=== PATIENT | female | born 1945 | race Hispanic/Latino ===

== ENCOUNTER 2019-09-25 18:00 | Inpatient (IN) | payer OTHER ==
[2019-09-25] MEDS ORDERED: NA CHLORIDE 0.9% 1,000 ML ONE ×3 (18:20→23:38)
[2019-09-25] MEDS ORDERED: GLUCAGON 1 MG/VIAL ONE (18:38)
[2019-09-25] MEDS ORDERED: ONDANSETRON 4 MG/2 ML VIAL ONE (18:39)
[2019-09-25 18:44] LABS: Absolute Lymphocytes (CBC) 1.9 K/uL (0.7-4.9); Basophils % 0.5 % (0-1.3); Hematocrit 28.7 % (36.0-45.0); Lymphocytes % 13.9 % (15.3-44.8); MPV 8.8 fL (7.6-11.3)
[2019-09-25 19:12] LABS: ALT/SGPT 14 U/L (12-78); AST/SGOT 22 U/L (15-37); Albumin 2.9 g/dL (3.4-5.0); Alkaline Phosphatase 66 U/L (45-117); BUN Blood Urea Nitrogen 56 mg/dL (7-18); Bicarbonate 6 mmol/L (21-32); Bilirubin Total 0.3 mg/dL (0.2-1.0); Glucose Level 125 mg/dL (74-106); Protein, Total 6.1 g/dL (6.4-8.2); Sodium Level 136 mmol/L (136-145); Troponin (Emerg Dept Use Only) < 0.02 ng/mL (0.0-0.045)
[2019-09-25 19:15] LABS: Potassium 6.9 mmol/L (3.5-5.1)
--- NOTE | 2019-09-25 19:22 | RAD REPORT ---
EXAM DESCRIPTION: CT - Head C Spine Mpr Wo Con - 09/25/2019 6:58 pm CLINICAL HISTORY: Head and neck injury status post fall. Head and neck pain COMPARISON: None. TECHNIQUE: Computed axial tomography of the head and cervical spine was obtained. Sagittal and coronal reconstruction was performed. All CT scans are performed using dose optimization technique as appropriate and may include automated exposure control or mA/KV adjustment according to patient size. FINDINGS: An intracranial bleed is not seen. The ventricles are normal in caliber. An extra-axial fl uid collection is not noted.Fluid within the visualized sinuses and mastoids is not seen A cervical fracture is not visualized. No dislocation is noted. IMPRESSION: No acute intracranial abnormality is seen. A cervical fracture is not visualized. If the patient continues to have symptoms to suggest intracra nial /spinal cord pathology then MRI would be recommended
[2019-09-25] MEDS ORDERED: ALBUTEROL 2.5 MG/3 ML NEB SOL ONE (19:24)
[2019-09-25] MEDS ORDERED: CEFTRIAXONE/SWI 1gm 1 GM/10 ML SYR ONE (19:25)
[2019-09-25] MEDS ORDERED: D50W 25 GM/50 ML SYRINGE/VIAL IV ONE (19:25)
[2019-09-25] MEDS ORDERED: Magnesium Sulfate 2gm IVPB 2 G/50 ML BAG IV ONE (19:25)
[2019-09-25] MEDS ORDERED: INSULIN -REGULAR HUMAN 50 UNIT/0.5 ML ML ONE (19:25)
--- NOTE | 2019-09-25 19:31 | RAD REPORT ---
EXAM DESCRIPTION: Rg Single View09/25/2019 7:01 pm CLINICAL HISTORY: Hypotension COMPARISON: none FINDINGS: The lungs appear clear of acute infiltrate. The heart is mildly enlarged IMPRESSION: No acute abnormalities displayed
[2019-09-25] MEDS ORDERED: NOREPINEPHRINE 4mg/D5W 250mL 4 MG/250 ML BAG IV ONE (19:42)
--- NOTE | 2019-09-25 20:14 | RAD REPORT ---
EXAM DESCRIPTION: CT - Abdomen Pelvis W Contrast - 09/25/2019 7:02 pm CLINICAL HISTORY: Abdominal pain COMPARISON: none. TECHNIQUE: Computed axial tomography of the abdomen pelvis was obtained. 100 cc Isovue-300 was admin istered intravenously. Oral contrast was not requested which limits evaluation of bowel. All CT scans are performed using dose optimization technique as appropriate and may include automated exposure control or mA/KV adjustment according to patient size. FINDINGS: Periportal hepatic edema. Gallbladder wall enhances. The spleen, pancreas and adrenals are unremarkable 2.8 centimeter left renal cyst. Small right renal cyst There is diminished opacification of the kidneys. Low-density is present within the right and left re nal veins. There is no evidence of diverticulitis. IMPRESSION: Periportal hepatic edema is a nonspecific finding but can be associated with hepatic inf lammation Enhancement of the gallbladder wall may also be related to hepatic inflammation or gallbladder diseas e. Ultrasound is recommended Diminished opacification of the kidneys may be related to cardiovascular disease. Low-density within the right and left renal veins probably unopacified blood. Thrombus has a similar appearance. Renal v ein ultrasound is recommended.
[2019-09-25 20:58] LABS: Magnesium 2.4 mg/dL (1.8-2.4)
[2019-09-25] MEDS ORDERED: SODIUM BICARB 50 MEQ/50ML VIAL ONE ×3 (21:01→21:40)
[2019-09-25] MEDS ORDERED: D5W 1,000 ML IV ONE (21:14)
[2019-09-25 21:21] LABS: Arterial Blood Carboxyhemoglob 0.6 % (0-1.5); Blood Gas Oxyhemoglobin 96.1 % (94-97); Blood O2 Saturation 96.6 % (92-98.5)
[2019-09-25] MEDS ORDERED: Caclcium Chloride 10% INJ SYR IV ONE (21:33)
[2019-09-25 21:35] LABS: Potassium 5.7 mmol/L (3.5-5.1)
[2019-09-25] MEDS ORDERED: LIDOCAINE 1% MPF 30 ML VIAL ONE (21:51)
[2019-09-25] MEDS ORDERED: D5W 1,000 ML with NA BICARB 8.4% 150 MEQ IV SCH ×2 (22:00)
[2019-09-25] MEDS ORDERED: NA CHLORIDE 0.9% 1,000 ML IV SCH (22:00)
[2019-09-25] MEDS ORDERED: KETAMINE HCL 500 MG/5 ML VIAL ONE (22:09)
--- NOTE | 2019-09-25 22:27 | ER ---
Nurse's Notes [facility] Name: Carolina Andrade Age: 74 yrs Sex: Female : 1945 Arrival Date: 09/25/2019 Time: 18:07 Bed 3 Private MD: Diagnosis: Acute renal failure;Hyperkalemia;Lactic acidosis;Altered mental status;Hypotension Presentation: 09/25 18:08 Presenting complaint: EMS states: pt daughter states that the patient was confused, sg altered mental status, with slurred speech. EMS states that the glucometer reading was "LO", administered D50 amp and sugar increased, upon taking VS the pt was hypotensive with BP readings of 70'S/40's. Transition of care: patient was not received from another setting of care. Onset of symptoms was September 25, 2019. Risk Assessment: Do you want to hurt yourself or someone else? Patient reports no desire to harm self or others. Initial Sepsis Screen: Does the patient meet any 2 criteria? Systolic BP < 90 mmHg. Mean Arterial Pressure (MAP) < 65. Yes Does the patient have a suspected source of infection? No. Patient's initial sepsis screen is negative. Care prior to arrival: Medication(s) given: D50. Care prior to arrival: IV initiated. 18 GA, in the right wrist, Glucose check: 130. 18:08 Method Of Arrival: EMS: [facility] sg 18:08 Acuity: EDWARD 2 sg Historical: - Allergies: 18:15 No Known Allergies; sg - Home Meds: 18:17 carvedilol oral oral [Active]; amlodipine oral [Active]; Metformin Oral [Active]; sg - PMHx: 18:15 Hypertension; Diabetes - NIDDM; sg - Immunization history:: Adult Immunizations up to date. - Coronavirus screen:: The patient has NOT traveled to [place] in the past 14 days. The patient has NOT had contact with known/suspected case of Coronavirus?. - Social history:: Smoking status: Patient denies any tobacco usage or history of. - Ebola Screening: : Patient negative for fever greater than or equal to 101.5 degrees Fahrenheit, and additional compatible Ebola Virus Disease symptoms Patient denies exposure to infectious person Patient denies travel to an Ebola-affected area in the 21 days before illness onset No symptoms or risks identified at this time. Screenin:00 Abuse screen: Denies threats or abuse. Nutritional screening: No deficits noted. ea Tuberculosis screening: No symptoms or risk factors identified. Fall Risk IV access (20 points). Assessment: 19:18 General: Appears uncomfortable, Behavior is restless. Pain: Unable to use pain scale. ea FLACC scale score is 4 out of 10. Neuro: Level of Consciousness is confused, Oriented to none. Cardiovascular: Heart tones S1 S2 present. Respiratory: Airway is patent Respiratory effort is even, unlabored, Respiratory pattern is regular, symmetrical. Derm: Skin is dry, Skin is pale, Skin temperature is cool. 19:45 Reassessment: Pt attempting to pull lines, verbal order for soft restraints obtained. ea Pt placed in soft restraints, pt tolerating well. 20:15 Reassessment: Provider at bedside attempting to place central line, pt is confused, ea oriented to zero, respirations even and unlabored, chest expansions even and symmetrical. 22:21 Reassessment: Dr Brown is here and speaking with family. 23:10 Reassessment: Pt remains confused, oriented to zero, respirations even and unlabored, ea chest expansions even and symmetrical. Pt admitted to ICU, taken via stretcher per nurse and two ED techs. Elias to BSD, IV's and central line patent with IV fluids. Pt tolerating well. Vital Signs: 18:08 BP 69 / 40; Pulse 62; Resp 18; Temp 97.7; Pulse Ox 100% on R/A; sg 18:15 BP 79 / 46; Pulse 66; sg 18:30 BP 79 / 43; Pulse 82; Resp 15; Pulse Ox 100% ; sv 19:20 BP 80 / 49; Pulse 54; Resp 16; Pulse Ox 100% ; ea 20:35 BP 82 / 37; Pulse 64; Resp 18; Temp 90(R); Pulse Ox 100% ; ea 21:40 BP 102 / 58; Pulse 70; Resp 16; Pulse Ox 100% ; ea 22:45 BP 100 / 74; Pulse 73; Resp 20; Pulse Ox 99% ; ea 20:35 Pt placed on tierney hugger ea ED Course: 18:07 Patient arrived in ED. sg 18:08 Garrison Antoine MD is Attending Physician. ps1 18:08 Arm band placed on. sg 18:14 Triage completed. sg 18:16 Raul Alvarez, RN is Primary Nurse. sg 18:20 Initial lab(s) drawn, by ED staff, sent to lab. Maintain EMS IV. Dressing intact. Site sg clean \\T\\ dry. Gauge \\T\\ site: 18 G RFA. IV is patent, is intact, with fluids infusing freely, with good blood return. 18:36 Radiology exam delayed due to IV insertion attempt and/or patient not having bh appropriate IV at this time. 18:40 Initial lab(s) drawn, sent to lab. First set of blood cultures drawn by me. mh5 18:45 Inserted saline lock: 22 gauge in left forearm, using aseptic technique. Blood mh5 collected. 18:46 Patient has correct armband on for positive identification. Placed in gown. Bed in low mh5 position. Call light in reach. Side rails up X2. Adult w/ patient. Warm blanket given. quality assurance monitor body on. Pulse ox on. NIBP on. 18:47 Lactate Sent. mh5 18:48 Glucose Sent. sv 18:48 CXR XRAY Sent. sv 18:48 Troponin (emerg Dept Use Only) Sent. sv 18:48 CMP Sent. sv 18:48 CBC with Diff Sent. sv 19:02 Report given to Karol NJ and Reed NJ. sv 19:15 Notified ED physician of a critical lab result(s). potassium of 6.9, CO2 of 6, jd3 Creatinine of 7.69. 19:41 Notified ED physician of a critical lab result(s). lactate 13.4. fc 22:23 Vivi Mcintosh MD is Hospitalizing Provider. ps1 22:30 Assisted provider with central line placement. Set up central line tray. Triple lumen ea line placed in right femoral. Line placed by Garrison Antoine MD Placement verified by blood return, Dressed with Tegaderm, Patient tolerated well. 22:38 Assisted provider with Stan catheter line placement. Set up line tray. Double lumen ea placed in left femoral. Line placed by Garrison Antoine MD. Placement verified by blood return. Dressed with Tegaderm, pt tolerated well. 22:45 Elias cath inserted, using sterile technique, 16 Fr., by nh, balloon inflated, to ea gravity drainage, urine specimen collected. 23:40 Patient admitted, IV remains in place. ea Restraints: 19:45 Non-Violent Restraint: Order obtained. Initiated on September 25, 2019 at 19:45 ea Actions/Behavior observed: Confused/disoriented, Less restrictive alternatives attempted: family at bedside, Alternative interventions: Ineffective. Clinical justification for use: line protection, Mental status: confused, Cognition: unable to follow commands, Circulation: Within defined parameters (based on Cardiovascular assessment) Skin integrity: Within defined parameters (based on Integumentary assessment) Restraint status: Soft wrist restraint (Right) Started. Soft wrist restraint (Left) Started. 20:45 Non-Violent Restraint: Actions/Behavior observed: Confused/disoriented, Less ea restrictive alternatives attempted: nurse at bedside, one on one patient care . Alternative interventions: Ineffective. Clinical justification for use: line protection, Mental status: confused, Cognition: unable to follow commands, Circulation: Within defined parameters (based on Cardiovascular assessment) Skin integrity: Within defined parameters (based on Integumentary assessment). 21:45 Non-Violent Restraint: Actions/Behavior observed: Confused/disoriented, Less ea restrictive alternatives attempted: one on one nurse care. Alternative interventions: Ineffective. Clinical justification for use: line protection, Mental status: confused, Cognition: unable to follow commands, Circulation: Within defined parameters (based on Cardiovascular assessment) Skin integrity: Within defined parameters (based on Integumentary assessment). 22:45 Non-Violent Restraint: Actions/Behavior observed: Confused/disoriented, Less ea restrictive alternatives attempted: 1:1 patient care, Alternative interventions: Ineffective. Clinical justification for use: line protection, Mental status: confused, Cognition: unable to follow commands, Circulation: Within defined parameters (based on Cardiovascular assessment) Skin integrity: Within defined parameters (based on Integumentary assessment) Restraint status: Soft wrist restraint (Right) Continued. Soft wrist restraint (Left) Continued. Administered Medications: 18:19 Drug: NS 0.9% 1000 ml Route: IV; Rate: 1 bolus; Site: right wrist; sv 20:30 Follow up: Response: No adverse reaction; IV Status: Completed infusion; IV Intake: ea 1000ml 19:30 Drug: Magnesium Sulfate 2 grams Route: IVPB; Infused Over: 2 hrs; Site: right forearm; ea 21:00 Follow up: Response: No adverse reaction; IV Status: Completed infusion ea 19:30 Drug: Albuterol 15 mg Route: Inhalation; ea 19:30 Drug: Insulin Regular Human 10 units {Co-Signature: [id number] (Reed Epps RN).} Route: ea IVP; Site: right forearm; 09/26 00:03 Follow up: Response: No adverse reaction ea 09/25 19:30 Drug: D50W 50 ml Route: IVP; Site: left forearm; ea 21:00 Follow up: Response: No adverse reaction ea 19:40 Drug: Rocephin 1 grams Route: IV; Rate: bolus; Site: left forearm; ea 20:00 Follow up: Response: No adverse reaction; IV Status: Completed infusion; IV Intake: 10mlea 19:50 Drug: Sodium Bicarbonate 1 amp Route: IVP; Site: right forearm; ea 21:00 Follow up: Response: No adverse reaction ea 19:50 Drug: Sodium Bicarbonate 1 amp Route: IVP; Site: right forearm; ea 21:00 Follow up: Response: No adverse reaction ea 20:58 Drug: Sodium Bicarbonate 1 amp Route: IVP; Site: left forearm; ea 22:00 Follow up: Response: No adverse reaction ea 21:00 Drug: NS 0.9% 1000 ml Route: IV; Rate: 1 bolus; Site: right femoral; ea 09/26 00:04 Follow up: Response: Adverse reaction, Physician notified; IV Status: Infusion ea continued upon admission; IV Intake: 900ml 09/25 21:30 Drug: D5W 1000 ml, Sodium Bicarbonate 150 mEq Route: IV; Rate: 100 ml/hr; Site: right ea femoral; 09/26 00:10 Follow up: Response: No adverse reaction; IV Status: Infusion continued upon admission; ea IV Intake: 900ml 09/25 22:34 Drug: Norepinephrine (4 mg/250 mL D5W) 4 mcg/min Route: IV; Rate: calculated rate; ea Site: right femoral; 23:00 Follow up: Response: No adverse reaction; IV Status: Infusion continued upon admission; ea IV Intake: 250ml 22:48 Drug: Lidocaine (1 %) 1 amp {Note: administered by provider.} Volume: 20 ml; Route: ea Infiltration; 23:22 Not Given (Physician Discretion): Glucagon 1 mg IVP once ea Intake: 20:00 IV: 10ml; Total: 10ml. ea 20:30 IV: 1000ml; Total: 1010ml. ea 23:00 IV: 250ml; Total: 1260ml. ea 09/26 00:04 IV: 900ml; Total: 2160ml. ea 00:10 IV: 900ml; Total: 3060ml. ea Outcome: 09/25 22:25 Decision to Hospitalize by Provider. ps1 22:25 Instructed on Family instructed on need for admit. Verbalized the understanding of ea instruction. 23:00 Admitted to ICU accompanied by nurse, accompanied by tech, via stretcher, room 6, with ea oxygen, on monitor, Report called to Bedside report given to Shruthi NJ 23:00 Condition: stable 23:15 Patient left the ED. ea Signatures: Ricarda Pearl, RN Raul Greene RN RN sg Chretien, Felicia, RN Kya Porter [facility] Karol Fermin RN RN ea Davies, Jonathon, RN RN jd3 Garrison Antoine MD MD ps1 Hallum, Brittan Reed Epps RN jd3 Corrections: (The following items were deleted from the chart) 09/26 00:42 00:41 Patient left the ED. ea ea
--- NOTE | 2019-09-25 22:27 | EDPHYS ---
Physician Documentation [facility] Name: Carolina Andrade Age: 74 yrs Sex: Female : 1945 Arrival Date: 09/25/2019 Time: 18:07 Bed 3 Private MD: ED Physician Garrison Antoine HPI: 09/25 18:26 This 74 yrs old Female presents to ER via EMS with complaints of Low Blood ps1 Sugar, Blood Pressure Problem. 18:26 Patient reportedly found down per . Confused. Daughter giving history. Patient ps1 confused. Hypotensive 70/40's. Hx of hypotension on carvedilol and amlodipine. States she did not take extra medications. Has NIDDM on metformin glucose 130. Daughter states that she had slurred speech but she is edentulous. Moving all extremities. . Historical: - Allergies: 18:15 No Known Allergies; sg - Home Meds: 18:17 carvedilol oral oral [Active]; amlodipine oral [Active]; Metformin Oral [Active]; sg - PMHx: 18:15 Hypertension; Diabetes - NIDDM; sg - Immunization history:: Adult Immunizations up to date. - Coronavirus screen:: The patient has NOT traveled to [place] in the past 14 days. The patient has NOT had contact with known/suspected case of Coronavirus?. - Social history:: Smoking status: Patient denies any tobacco usage or history of. - Ebola Screening: : Patient negative for fever greater than or equal to 101.5 degrees Fahrenheit, and additional compatible Ebola Virus Disease symptoms Patient denies exposure to infectious person Patient denies travel to an Ebola-affected area in the 21 days before illness onset No symptoms or risks identified at this time. ROS: 18:26 Unable to obtain ROS due to confused. . ps1 Exam: 18:26 Constitutional: This is a well developed, well nourished patient who is awake, alert, ps1 and in no acute distress. Head/Face: Normocephalic, atraumatic. Eyes: Pupils equal round and reactive to light, extra-ocular motions intact. Lids and lashes normal. Conjunctiva and sclera are non-icteric and not injected. Cardiovascular: Regular rate and rhythm. No gallops, murmurs, or rubs. Normal PMI, no JVD. No pulse deficits. Respiratory: Lungs have equal breath sounds bilaterally, clear to auscultation and percussion. No rales, rhonchi or wheezes noted. No increased work of breathing, no retractions or nasal flaring. Abdomen/GI: Soft, non-tender, with normal bowel sounds. No distension or tympany. No guarding or rebound. No evidence of tenderness throughout. MS/ Extremity: Pulses equal, no cyanosis. Neurovascular intact. Full, normal range of motion. 18:26 Neuro: Orientation: to person, place \T\ time. Mentation: is normal, Memory: recent memory is impaired. Vital Signs: 18:08 BP 69 / 40; Pulse 62; Resp 18; Temp 97.7; Pulse Ox 100% on R/A; sg 18:15 BP 79 / 46; Pulse 66; sg 18:30 BP 79 / 43; Pulse 82; Resp 15; Pulse Ox 100% ; sv 19:20 BP 80 / 49; Pulse 54; Resp 16; Pulse Ox 100% ; ea 20:35 BP 82 / 37; Pulse 64; Resp 18; Temp 90(R); Pulse Ox 100% ; ea 21:40 BP 102 / 58; Pulse 70; Resp 16; Pulse Ox 100% ; ea 22:45 BP 100 / 74; Pulse 73; Resp 20; Pulse Ox 99% ; ea 20:35 Pt placed on tierney hugger ea Procedures: 21:18 Central Line: the site was prepped with chlorhexidine, a triple lumen catheter was ps1 inserted, in the right femoral vein, in 3 attempts. placement was verified, by blood return. 22:31 Performed 2220: Stan cath placement. site prepped with chlorhexidine. double lumen ps1 stan was placed using sterile procedure in left femoral vein. Verified by blood return. . MDM: 18:26 Patient medically screened. ps1 21:18 Differential diagnosis: DKA, renal failure, hyperkalemia, lactic acidosis, hypotension, ps1 sepsis, and others. Data reviewed: vital signs, nurses notes, lab test result(s), EKG, radiologic studies, and as a result, I will admit patient. 22:25 ED course: 74 y/o F presenting with AMS, hypotension. Found to be in acute renal ps1 failure and hyperkalemia with significant hypotension. 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 K 6.9. Additionally her HCO3 \R\5. Central line placed and stan catheter placed. Patient started on Levophed and bicarb gtt which improved her blood pressure. She maintains altered mental status but improves intermittently and transiently. Called Dr. Brown for emergent dialysis and attempted to get patient to [place] for quicker dialysis 2/2 dialysis nurse transit time. No beds readily available at [facility] or [facility]. Dr. Brown came in for evaluation and called in dialysis nurse. Dr. Mcintosh agreed with plan of care. Patients blood pressure improved after >3 liters fluid, Levophed, and bicarb gtt. Patient admitted to ICU in critical condition. . 09/25 18:19 Order name: Glucose, Ancillary Testing; Complete Time: 18:26 EDMS 09/25 18:20 Order name: CBC with Diff 09/25 18:20 Order name: CMP 09/25 18:20 Order name: Troponin (emerg Dept Use Only) ps1 09/25 18:20 Order name: Blood Culture Adult (2) ps1 09/25 18:20 Order name: Lactate ps1 09/25 18:20 Order name: Glucose ps1 09/25 18:47 Order name: CBC with Automated Diff; Complete Time: 18:48 EDMS 09/25 18:55 Order name: Magnesium ps1 09/25 19:19 Order name: Comprehensive Metabolic Panel; Complete Time: 21:02 EDMS 09/25 19:19 Order name: Troponin (Emerg Dept Use Only); Complete Time: 21:02 EDMS 09/25 19:32 Order name: ABG 09/25 19:42 Order name: Lactate; Complete Time: 20:03 EDMS 09/25 20:40 Order name: BMP ps1 09/25 18:20 Order name: CXR XRAY 09/25 18:20 Order name: CT Abd/Pelvis - IV Contrast Only 09/25 18:50 Order name: CT Head C Spine 09/25 19:24 Order name: CT; Complete Time: 19:28 EDMS 09/25 19:34 Order name: RAD; Complete Time: 20:03 EDMS 09/25 20:21 Order name: CT; Complete Time: 20:40 EDMS 09/25 20:59 Order name: Magnesium; Complete Time: 21:02 EDMS 09/25 21:26 Order name: ABG Arterial Blood Gas; Complete Time: 22:33 EDCO 09/25 22:33 Interpretation: Abnormal: ABGPH 6.88; ABGPCO2 26.6; ABGHCO3 4.7. [facility] 09/25 21:36 Order name: Basic Metabolic Panel; Complete Time: 22:33 EDCO 09/25 22:34 Interpretation: Abnormal: CRE 7.50; BUN 58. ps1 09/25 23:04 Order name: Urine Culture [facility] 09/25 23:04 Order name: Urine Microscopic Only [facility] 09/25 23:56 Order name: Urine Microscopic Only [facility] 09/26 00:03 Order name: CBC without Diff [facility] 09/26 00:27 Order name: ABO/RH no charge [facility] 09/26 00:38 Order name: Lactate Sepsis 2 HR Follow-up [facility] 09/25 18:20 Order name: Urine Dipstick-Ancillary (obtain specimen); Complete Time: 23:03 [facility] 09/25 18:20 Order name: EKG - Nurse/Tech; Complete Time: 18:48 [facility] 09/26 00:09 Order name: Restraint:Non-Violent; Complete Time: 00:09 ea Administered Medications: 18:19 Drug: NS 0.9% 1000 ml Route: IV; Rate: 1 bolus; Site: right wrist; sv 20:30 Follow up: Response: No adverse reaction; IV Status: Completed infusion; IV Intake: ea 1000ml 19:30 Drug: Magnesium Sulfate 2 grams Route: IVPB; Infused Over: 2 hrs; Site: right forearm; ea 21:00 Follow up: Response: No adverse reaction; IV Status: Completed infusion ea 19:30 Drug: Albuterol 15 mg Route: Inhalation; ea 19:30 Drug: Insulin Regular Human 10 units {Co-Signature: [email or web address] (Reed Epps RN).} Route: ea IVP; Site: right forearm; 09/26 00:03 Follow up: Response: No adverse reaction 09/25 19:30 Drug: D50W 50 ml Route: IVP; Site: left forearm; ea 21:00 Follow up: Response: No adverse reaction ea 19:40 Drug: Rocephin 1 grams Route: IV; Rate: bolus; Site: left forearm; ea 20:00 Follow up: Response: No adverse reaction; IV Status: Completed infusion; IV Intake: 10mlea 19:50 Drug: Sodium Bicarbonate 1 amp Route: IVP; Site: right forearm; ea 21:00 Follow up: Response: No adverse reaction ea 19:50 Drug: Sodium Bicarbonate 1 amp Route: IVP; Site: right forearm; ea 21:00 Follow up: Response: No adverse reaction ea 20:58 Drug: Sodium Bicarbonate 1 amp Route: IVP; Site: left forearm; ea 22:00 Follow up: Response: No adverse reaction ea 21:00 Drug: NS 0.9% 1000 ml Route: IV; Rate: 1 bolus; Site: right femoral; ea 09/26 00:04 Follow up: Response: Adverse reaction, Physician notified; IV Status: Infusion ea continued upon admission; IV Intake: 900ml 09/25 21:30 Drug: D5W 1000 ml, Sodium Bicarbonate 150 mEq Route: IV; Rate: 100 ml/hr; Site: right ea femoral; 09/26 00:10 Follow up: Response: No adverse reaction; IV Status: Infusion continued upon admission; ea IV Intake: 900ml 09/25 22:34 Drug: Norepinephrine (4 mg/250 mL D5W) 4 mcg/min Route: IV; Rate: calculated rate; ea Site: right femoral; 23:00 Follow up: Response: No adverse reaction; IV Status: Infusion continued upon admission; ea IV Intake: 250ml 22:48 Drug: Lidocaine (1 %) 1 amp {Note: administered by provider.} Volume: 20 ml; Route: ea Infiltration; 23:22 Not Given (Physician Discretion): Glucagon 1 mg IVP once ea Disposition: 22:31 Chart complete. ps1 Disposition: 09/25/19 22:25 Hospitalization ordered by Vivi Mcintosh for Inpatient Admission. Preliminary diagnosis are Acute renal failure, Hyperkalemia, Lactic acidosis, Altered mental status, Hypotension. - Bed requested for Intensive Care Unit. - Status is Inpatient Admission. ea - Condition is Critical. - Problem is new. - Symptoms have improved. Critical care time excluding procedures: 21:18 Critical care time: Bedside Care: 60 minutes, Consultation: 20 minutes, Family ps1 Intervention: 10 minutes. Total time: 90 minutes Signatures: Dispatcher [employer] Ricarda Mitchell RN RN sv Gay, Steven, RN RN sg Garcia, Cindy, RN RN cg Marinas, Patrick, MARLINE CALL OR CONTACT CENTRE OPERATOR pm1 Karol Fermin RN RN ea Singer, Phillip, MD MD ps1 Reed Epps RN [email or web address] Corrections: (The following items were deleted from the chart) 22: 22:25 Hospitalization Ordered by Vivi Mcintosh MD for Inpatient Admission. Preliminary cg diagnosis is Acute renal failure; Hyperkalemia; Lactic acidosis; Altered mental status; Hypotension. Bed requested for Intensive Care Unit. Status is Inpatient Admission. Condition is Critical. Problem is new. Symptoms have improved. ps1 : 22:33 ABGPH 6.88; ABGPCO2 26.6; ABGHCO3 4.7. ps1 ps1 : 21:18 Central Line: the site was prepped with chlorhexidine, a triple lumen catheter ps1 was inserted, in the right femoral vein, in 3 attempts. placement was verified, by blood return, ps1 09/26 00:41 09/25 22:28 09/25/2019 22:25 Hospitalization Ordered by Vivi Mcintosh MD for Inpatient ea Admission. Preliminary diagnosis is Acute renal failure; Hyperkalemia; Lactic acidosis; Altered mental status; Hypotension. Bed requested for Intensive Care Unit. Status is Inpatient Admission. Condition is Critical. Problem is new. Symptoms have improved. cg
[2019-09-25] MEDS ORDERED: NOREPINEPHRINE 4 MG/4 ML VIAL ONE (22:37)
[2019-09-25] MEDS ORDERED: D5W 250 ML IV ONE (22:37)
--- NOTE | 2019-09-25 23:10 | P.CNS ---
Date of Consult: 09/25/19 patient seen/examined. reviewed with Dr. Antoine over phone several times and then in person in ER. Reviewed with patient's family and updated them. chart reviewed. hx obtained from family as patient still with change of mental status confused. condition critical. bp was low with sbp in 70 range. patient with severe metabolic acidosis and with significant hyperkalemia. lactic acidosis. s/p ivf with about 2 litres of ns and ivf with d5 3 amps of bicarb going in at 100 ccs /hour. no evidence of chf and cxray with good lung basis and no edema. skin is dry. patient has been having diarrhea and not eating well as per family. hx of ckd and has seen Dr. Salomon in past. vs sbp improved to 100-110 on levafed. s/p ivf. getting ivf currently. pulse 80. rr 16. with oxygen. breathing comfortably but does not answer qusestions/ seems to be alert but confused. lungs: cta cvs: regular abd : soft ext: no edema family hx: non-contributory allergies: nkda listed meds: got rocephin. a/p: ? patient is getting septic. s/p rocephin but will broaden coverage while bcx pending. get ua/ucx (lebron placed to get sample/minimum urine). seems volume depleted. would still get dialysis as she seems uremic with change of mentation and she has had hx of ckd. severe metabolic acidosis and with significant hyperkalemia. will dialyze with 2 k and with bicarb 35 and give procrit (or substitute). mannitol at start of dialysis. will give gram of fortaz and 1 gram of vancomycin as well. icu monitoring. levafed to keep bp stable and ivf with d5 3 amps of bicarb and consider ns boluses as needed. reviewed with family; understand that she is critical. they want to consider all interventions for now but are going to consider dnr if patient's condition worsens. infection/hyperkalemia/met acidosis could likely be reversed with abx/ meds/fluids and dialysis. discussed with family/questions answered. over 1 hour spent assessing/addressing patient's condition. condition continues to be guarded. close monitoring in icu for what seems like ervin/uti/severe metabolic acidosis and hyperkalemia with sepsis.
[2019-09-25] MEDS ORDERED: VANCOMYCIN 1 GM in NA CHLORIDE 0.9% 500 ML IVPB ONE (23:27)
[2019-09-25] MEDS: MANNITOL 25% 12.5 GM/50 ML VIAL IV STA (23:28)
[2019-09-25] MEDS ORDERED: HEPARIN 5000 UNIT/ML 1 ML VIAL ONE (23:41)
[2019-09-25] MEDS ORDERED: MANNITOL 25% 50 ML IV ONE (23:41)
[2019-09-25] MEDS ORDERED: VANCOMYCIN 1 GM/VIAL ONE (23:49)
[2019-09-25] MEDS ORDERED: NA CHLORIDE 0.9% 500 ML ONE (23:50)
[2019-09-25 23:54] LABS: Urine Bacteria >50 /HPF (<20); Urine Culture Reflex Order NOT NEEDED; Urine RBC <5 /HPF (NONE SEEN)
[2019-09-25 23:55] LABS: Urine Volume 1 ML
[2019-09-25 23:58] LABS: RBC Red Blood Cell Count 2.56 M/uL (3.86-4.86)
--- NOTE | 2019-09-26 00:07 | P.PN ---
Subjective Date of Service: 09/26/19 Chief Complaint: ervin/met acidosis/uti/? sepsis/anemia patient about to start dialysis. will see on dialysis. see dialysis notes as well. hb in 7 range. will type / cross and transfuse one unit prbc. reviewed with rn. fortaz 1 gram and vancomycin 1 gram towards end of dialysis. patient had been on metformin. ? if this has contributed to her diarrhea in past and current severe metabolic acidosis. reviewed with family to avoid this medication in past. will advise rn to list as allergy. Physical Examination - Studies Laboratory Data (last 24 hrs) 09/25/19 20:49: Sodium 137, Potassium 5.7 H*, BUN 58 H, Creatinine 7.50 H*, Glucose 281 H 09/25/19 18:55: Magnesium Cancelled 09/25/19 18:03: Sodium 136, Potassium 6.9 H*, BUN 56 H, Creatinine 7.69 H*, Glucose 125 H, Magnesium 2.4, Total Bilirubin 0.3, AST 22, ALT 14, Alkaline Phosphatase 66 09/25/19 18:03: WBC 13.5 H, Hgb 8.9 L, Hct 28.7 L, Plt Count 321
[2019-09-26] MEDS ORDERED: CEFTAZIDIME 1 GM VIAL ONE (00:20)
[2019-09-26] MEDS ORDERED: NOREPINEPHRINE 4 MG/4 ML VIAL ONE (00:35)
[2019-09-26] MEDS ORDERED: D5W 250 ML IV ONE (00:35)
[2019-09-26] MEDS: NOREPINEPHRINE 4 MG in D5W 250 ML IV PRN ×2 (00:59→03:22)
[2019-09-26] MEDS ORDERED: WATER FOR INJ,STERILE 10 ML IV PRN (01:01)
[2019-09-26] MEDS: MANNITOL 25% 12.5 GM/50 ML VIAL IV STA (01:18)
[2019-09-26] MEDS ORDERED: NA CHLORIDE 0.9% 250 ML IV SCH (02:00)
[2019-09-26] MEDS ORDERED: NOREPINEPHRINE 4mg/D5W 250mL 4 MG/250 ML BAG IV ONE (03:22)
[2019-09-26 03:57] LABS: Potassium 4.5 mmol/L (3.5-5.1)
[2019-09-26 05:03] LABS: Absolute Lymphocytes (CBC) 0.9 K/uL (0.7-4.9); Hematocrit 27.9 % (36.0-45.0); Lymphocytes % 5.1 % (15.3-44.8); MPV 8.9 fL (7.6-11.3); RBC Red Blood Cell Count 2.99 M/uL (3.86-4.86)
[2019-09-26 06:44] LABS: Arterial Blood Carboxyhemoglob 0.8 % (0-1.5); Blood O2 Saturation 96.6 % (92-98.5)
--- NOTE | 2019-09-26 06:50 | P.HP ---
Certification for Inpatient Patient admitted to: Inpatient With expected LOS: >2 Midnights Practitioner: I am a practitioner with admitting privileges, knowledge of patient current condition, hospital course, and medical plan of care. Services: Services provided to patient in accordance with Admission requirements found in Title 42 Section 412.3 of the Code of Federal Regulations Patient History Date of Service: 09/25/19 Reason for admission: AKHIL/metabolic acidosis/UTI/Sepsis/anemia History of Present Illness: PATIENT IS A 74-YEAR-OLD FEMALE WHO CAME TO THE HOSPITAL WITH ACUTE KIDNEY INJURY. PATIENT BEEN HAVING DIARRHEA FOR THE LAST FEW DAYS. PATIENT WAS LETHARGIC, AND THE FAMILY BROUGHT HER INTO THE ER. PATIENT WAS IN ACUTE KIDNEY FAILURE. PATIENT WAS STARTED ON IV HYDRATION AND GIVEN MULTIPLE ROUNDS OF BICARB FOR HYPERKALEMIA. PATIENT WAS GIVEN D50 AND INSULIN. PATIENT WAS STARTED ON A BICARB DRIP. WE SPOKE TO NEPHROLOGY AND BECAUSE PATIENT WAS UNABLE TO GET TRANSFERRED BECAUSE SHE WAS GOING TO REQUIRE HEMODIALYSIS EMERGENTLY (AND SHE WAS ON VASOPRESSORS). NEPHROLOGY, DR. ALVES, CAME TO EVALUATE HER PERSONALLY. PATIENT WILL BE STARTED ON HEMODIALYSIS. WE WILL TITRATE LEVOPHED. PATIENT DOES HAVE A [id number] DNR. AT THIS TIME THE FAMILY WANTS EVERYTHING DONE. HOPEFULLY, WILL GET TO SPEAK WITH PATIENT WHEN SHE IS MORE ALERT. CURRENTLY SHE IS VERY LETHARGIC AND UNABLE TO REALLY ANSWER QUESTIONS. Allergies metformin Allergy (Verified 09/26/19 00:11) metabolic acidosis Home Medications: Amlodipine [Norvasc] 10 mg PO DAILY 09/26/19 Carvedilol [Coreg] 25 mg PO DAILY 09/26/19 Metformin HCl 1,000 mg PO BIDWM 09/26/19 Pravastatin Sodium 80 mg PO BEDTIME 09/26/19 - Past Medical/Surgical History Has patient received pneumonia vaccine in the past: Yes Diabetic: Yes -: diabetes -: Htn -: high cholesterol -: glaucoma -: right eye lens implants -: left eye shunt -: hysterectomy -: appendectomy - Family History Father Medical History: Cancer Sister History Unknown: Yes Medical History: Diabetes Mother Medical History: Heart disease - Social History Smoking Status: Never smoker Alcohol use: No CD- Drugs: No Caffeine use: Yes Place of Residence: Home Physical Examination - Vital Signs Temperature: 973 F Blood Pressure: 105/52 Pulse: 89 Respirations: 17 Pulse Ox (%): 100 - Studies Laboratory Data (last 24 hrs) 09/25/19 20:49: Sodium 137, Potassium 5.7 H*, BUN 58 H, Creatinine 7.50 H*, Glucose 281 H 09/25/19 18:55: Magnesium Cancelled 09/25/19 18:03: Sodium 136, Potassium 6.9 H*, BUN 56 H, Creatinine 7.69 H*, Glucose 125 H, Magnesium 2.4, Total Bilirubin 0.3, AST 22, ALT 14, Alkaline Phosphatase 66 09/25/19 18:03: WBC 13.5 H, Hgb 8.9 L, Hct 28.7 L, Plt Count 321 Assessment & Plan - Problems (Diagnosis) (1) Acute respiratory distress Current Visit: Yes Status: Acute (2) High anion gap metabolic acidosis Current Visit: Yes Status: Acute (3) Acute kidney failure Current Visit: Yes Status: Acute (4) Diarrhea Current Visit: Yes Status: Acute (5) Anemia Current Visit: Yes Status: Acute Qualifiers: Anemia type: iron deficiency (6) Leukocytosis Current Visit: Yes Status: Acute (7) Hypotension Current Visit: Yes Status: Acute - Plan Plan: 1. aggressive IV hydration 2. bicarb drip 3. nephrology consultation 4. Stan catheter placement 5. IV antibiotics 6. Vasopressor support 7. family has revoked DNR at this time. They will have to bring her paperwork from home 8. hemodialysis this evening 9. GI and DVT prophylaxis - Advance Directives Does patient have a Living Will: Yes Does patient have a Durable POA for Healthcare: No Critical Care: Yes Time Spent Managing PTS Care (In Minutes): 60
[2019-09-26 07:11] LABS: Blood Morphology Comment NOT SEEN (NOT SEEN); Platelet Estimate ADEQ
[2019-09-26 07:28] LABS: Potassium 4.7 mmol/L (3.5-5.1)
--- NOTE | 2019-09-26 08:00 | P.PN ---
Subjective Date of Service: 09/26/19 patient is status post hemodialysis. She has clinically improved through the evening. We have been able to wean down her Levophed drip. Her mentation is improved. She is more awake and alert. She still has significant acidosis. We will continue with bicarb drip. Patient will possibly be hemodialyzed once again today. She was given 1 unit of packed red blood cells and will continue monitoring her H&H. Review of Systems 10-point ROS is otherwise unremarkable Physical Examination - Vital Signs Temperature: 973 F Blood Pressure: 105/52 Pulse: 89 Respirations: 17 Pulse Ox (%): 100 - Physical Exam General: Alert, In no apparent distress, Oriented x2 Respiratory: Clear to auscultation bilaterally, Normal air movement Cardiovascular: Regular rate/rhythm, Normal S1 S2 Gastrointestinal: Normal bowel sounds, Soft and benign, Non-distended, No tenderness Musculoskeletal: No tenderness Integumentary: No rashes Neurological: Normal speech, Normal tone, Sensation intact, Cranial nerves 3-12 intact - Studies Laboratory Data (last 24 hrs) 09/25/19 20:49: Sodium 137, Potassium 5.7 H*, BUN 58 H, Creatinine 7.50 H*, Glucose 281 H 09/25/19 18:55: Magnesium Cancelled 09/25/19 18:03: Sodium 136, Potassium 6.9 H*, BUN 56 H, Creatinine 7.69 H*, Glucose 125 H, Magnesium 2.4, Total Bilirubin 0.3, AST 22, ALT 14, Alkaline Phosphatase 66 09/25/19 18:03: WBC 13.5 H, Hgb 8.9 L, Hct 28.7 L, Plt Count 321 Medications List Reviewed: Yes Assessment & Plan - Problems (Diagnosis) (1) Acute respiratory distress Current Visit: Yes Status: Acute (2) High anion gap metabolic acidosis Current Visit: Yes Status: Acute (3) Acute kidney failure Current Visit: Yes Status: Acute (4) Diarrhea Current Visit: Yes Status: Acute (5) Anemia Current Visit: Yes Status: Acute Qualifiers: Anemia type: iron deficiency (6) Leukocytosis Current Visit: Yes Status: Acute (7) Hypotension Current Visit: Yes Status: Acute - Plan Plan: 1. Weaning off vasopressor support 2. bicarb drip 3. nephrology consultation was appreciated. Patient was hemodialyzed and clinically has improved. However, her recovery still has a long way to go. She remains severely acidotic. We have to get to the bottom of what is causing this persistent acidosis. Continue further workup. Evaluate her liver and do an echocardiogram. Check acetone level. Repeat her lactate level. We may need to check her salicylate level as well. Patient remains full code per family. Will continue with IV antibiotic support. We may need to give additional dose of Fortaz as this was giving during her dialysis and a certain percentage may have been filtered out. 4. GI and DVT prophylaxis Discharge Plan: Home Plan to discharge in: Greater than 2 days - Advance Directives Does patient have a Living Will: Yes Does patient have a Durable POA for Healthcare: No - Code Status/Comfort Care Code Status: Full Code Critical Care: Yes Time Spent Managing PTS Care (In Minutes): 60
--- NOTE | 2019-09-26 08:53 | EKG ---
Test Date: 2019-09-25 Test Time: 18:45:49 Leather Grader: SWG MEASUREMENT RESULTS: Intervals: Rate: 56 HI: 160 QRSD: 86 QT: 554 QTc: 534 Telford: P: 61 HI: 160 QRS: 72 T: 65 INTERPRETIVE STATEMENTS: Sinus bradycardia with premature atrial complexes Prolonged QT Abnormal ECG No previous ECG available for comparison Electronically Signed On 09-26-19 08:52:39 RESIDENTIAL NURSE by Roger Guidry
[2019-09-26] MEDS ORDERED: CEFTAZIDIME 1 GM VIAL IV SCH (09:00)
[2019-09-26] MEDS: D5W 1,000 ML with NA BICARB 8.4% 150 MEQ IV SCH ×4 (09:05→21:21)
--- NOTE | 2019-09-26 10:06 | ECHO ---
HEIGHT: 5 ft 3 in WEIGHT: 150 lb 6.4 oz DATE OF STUDY: 09/26/[address]: Vivi Mcintosh MD 2-DIMENSIONAL: YES M.MODE: YES DOPPLER: YES COLOR FLOW: YES TDS: NO PORTABLE: YES DEFINITY: NO BUBBLE STUDY: NO DIAGNOSIS: HYPOTENSION CARDIAC HISTORY: CATHERIZATION: SURGERY: PROSTHETIC VALVE: PACEMAKER: MEASUREMENTS (cm) DIASTOLIC (NORMALS) SYSTOLIC (NORMALS) IVSd 1.1 (0.6-1.2) LA Diam 3.1 (1.9-4.0) LVEF 79% LVIDd 3.2 (3.5-5.7) LVIDs 1.7 (2.0-3.5) %FS 47% LVPWd 1.0 (0.6-1.2) Ao Diam 2.5 (2.0-3.7) 2 DIMENSIONAL ASSESSMENT: RIGHT ATRIUM: NORMAL LEFT ATRIUM: NORMAL RIGHT VENTRICLE: NORMAL LEFT VENTRICLE: NORMAL TRICUSPID VALVE: NORMAL MITRAL VALVE: NORMAL PULMONIC VALVE: NORMAL AORTIC VALVE: NORMAL PERICARDIAL EFFUSION: NONE AORTIC ROOT: NORMAL LEFT VENTRICULAR WALL MOTION: NORMAL DOPPLER/COLOR FLOW: MILD MITRAL AND TRICUSPID REGURGITATION. MILD PULMONARY HYPERTENSION. ESTIMATED RIGHT VENTRICULAR SYSTOLIC PRESSURE 45 mmHg. COMMENTS: NORMAL 2D ECHOCARDIOGRAM. MILD MITRAL AND TRICUSPID REGURGITATION. MILD PULMONARY HYPERTENSION. TECHNOLOGIST: Virginia STRAUSS
--- NOTE | 2019-09-26 14:02 | RAD REPORT ---
EXAM DESCRIPTION: US - Abdomen Exam Complete - 09/26/2019 1:11 pm CLINICAL HISTORY: acute renal failure/ gallbladder or liver disease COMPARISON: Abdomen Pelvis W Contrast dated 09/25/2019 FINDINGS: Gallbladder size is normal. No gallstones or measurable quantity of sludge. Areas of gallb ladder wall thickening are present without mass lesion identifiable. No pericholecystic fluid seen. P atient was not tender to transducer pressure over the gallbladder. Common bile duct is normal with no common duct stone identified. Liver shows a coarsened, increased echogenicity that is borderline to mildly fatty infiltrated. No fo meng liver lesion identifiable. Doppler evaluation shows normal velocity and flow direction of the por jean vein. No splenomegaly or focal splenic finding. The pancreas is normal. No hydronephrosis or suspicious mass in either kidney. A 1.8 cm cyst is present lateral anterior righ t kidney. A 2 centimeter cyst is present in the central left kidney. Aorta and IVC are partially obscured. No abnormality suspected. Bowel gas was prominent. IMPRESSION: No gallstones are identified. Areas of mild gallbladder wall thickening are seen. This i s generally similar to the CT study. No biliary tree abnormality. Probable fatty infiltration of the liver. No focal liver lesion identifiable. The aorta, IVC and pancreas are partially obscured by bowel gas. No abnormalities of these structures seen on the prior day CT study.
[2019-09-26 14:37] LABS: Potassium 4.7 mmol/L (3.5-5.1)
[2019-09-26] MEDS ORDERED: GLUCAGON 1 MG/VIAL IM PRN (16:29)
[2019-09-26] MEDS ORDERED: D50W 25 GM/50 ML SYRINGE/VIAL IV PRN (16:29)
[2019-09-26] MEDS: INSULIN -REGULAR HUMAN 50 UNIT/0.5 ML ML IV SCH ×2 (17:41→20:44)
--- NOTE | 2019-09-26 17:41 | PN ---
Subjective: A 74-year-old female with type 2 diabetes, admitted by the hospitalist from the emergenc y room because she was found to be confused with slurred speech and incoherent and sepsis was conside red because of that on admission. I have reviewed the reports and note of admission, history and phy sical from Dr. Mcintosh, hospitalist and also from the emergency room physician. I have reviewed the pat torin's radiology and labs. Patient this morning feels much better. She is coherent. She knew me an d knows her family, talking well. Objective: Vital Signs: Her blood pressure is 137/57, pulse 97, temperature 96.8. Heart: Regular rate and rhythm. Chest: Clear to auscultation. Abdomen: Soft, nontender. No rigidity. No rebound. Bowel sounds are normoactive. Extremities: No edema. No cyanosis. Peripheral pulses are felt. Neurological: Alert, oriented, nonfocal. Grossly intact. Laboratory Data: CBC this morning, white cell count of 18.4, hemoglobin 9, hematocrit 27.9, and plat elets 208. Chemistry; BUN 33, creatinine 4.67. Her CO2 is 10. Lactic acid 12. Urine showed 20 to 50 white cell count loaded with bacteria, acetone level moderate in urine, prolactin 1.27, and blood calcium 7.1. Assessment And Plan: 1.Acute renal failure, likely secondary to sepsis along with the patient during history of having so ft loose stools and sometimes watery stools for few months. I think also an element of volume deplet ion and dehydration have caused acute renal failure with a baseline of chronic renal failure from trice betes with an acute injury now. Nephrology has been consulted. The patient has been put on IV fluid s and we will follow Nephrology recommendations from that standpoint. 2.Sepsis. Patient on vancomycin and cefepime IV antibiotics. I think it is coming from her urine t ract, mainly likely cystitis. The patient gave a history that few days ago she felt burning urinatio n and urgency to urinate, but she did not pay attention to it. Cultures are pending. I will continu e her on current antibiotics. 3.Type 2 diabetes. The patient was on metformin. We will stop that and we will permanently change her to insulin from there on. However, right now the patient is on regular insulin sliding scale. 4.Radiology possible pointing to her gallbladder wall thickening. We will go ahead and order an ult rasound on her gallbladder. The renal ultrasound will leave that for nephrology to order the patient has chronic renal failure. I doubt if it is a thrombosis or renal veins, but we will leave that dec ision for Nephrology. 5.We will continue the patient on her cholesterol and medication. We will hold on her blood pressur e medications for now, because she was hypotensive and as mentioned, we will stop her metformin and p ut her on sliding scale. Look orders for details. MFS/MODL Voice ID: [id number] Report ID: [id number]
[2019-09-26] MEDS ORDERED: ACETAMINOPHEN 325 MG TABLET PO PRN (17:57)
--- NOTE | 2019-09-26 18:53 | PN ---
Date of Progress Note: 09/26/2019 Subjective: Patient seen and examined at bedside. She is doing much better. She has started to bakari e urine and her mental status is significantly better per her family members. She is off Levophed at this time. Physical Examination: Vital Signs: Showing temperature of 98.9, pulse rate of 97, respiratory rate of 19, and blood pressu re 129/61. General: She appears in no acute distress. HEENT: Atraumatic head. Lungs: Clear to auscultation. Heart: Auscultation revealed regular rate and rhythm. No murmurs were appreciated. Abdomen: Soft and nontender. Extremities: Showed no evidence of edema. Neurologic: She is alert, awake, and oriented x3. She is legally blind. Laboratory Data: Has been sent off just now but from this morning, her sodium was 136, potassium was 4.7, BUN of 33, and creatinine was 4.67. Lactic acid was at 12. CBC showing WBC count of 18,000, h emoglobin of 9, hematocrit 27.9, and platelet count of 208. Her urinalysis was consistent with infec tion. Cultures are still pending at this time. Current Medications: Have been reviewed in detail. Impression: 1.Acute renal failure, likely secondary to sepsis from urinary tract infection. The patient had trice lysis for severe lactic acidosis and . Her parameter seems to be improving and her urine o utput also seems to be improving at this time. She got a dose of cefepime 1 g one time dose. We santy l follow up on urine culture reports and re-dose it based on her labs. 2.Severe lactic acidosis, likely secondary to combination of sepsis plus underlying metformin use. We will go ahead and discontinue metformin for right now and check another lactic acid. 3. , improving. 4.Type 2 diabetes. Will need to be on insulin sliding scale for right now. 5.Altered mental status, improving. 6.Possible underlying urinary tract infection. We will follow up on urine culture reports and re-do se her antibiotics. Plan: Overall, the patient is doing much better. Renal function seems to be significantly improving . Urine output also seems to be picking up. We will repeat another lab and check another lactic aci d. If her lactic acidosis is worsening, we will plan for dialysis again, but for now we will hold of f since her urine output is improving and monitor her blood pressure closely and will follow up on cultures and re-dose her antibiotics. Plan was discussed with the patient's family at bedside. Jaime ramos questions were answered. Time spent about 45 minutes. VV/MODL Voice ID: [id number] Report ID: [id number]
[2019-09-26] MEDS: ATORVASTATIN 10 MG TAB PO SCH (20:44)
[2019-09-26] MEDS: CEFEPIME/SWI 1gm 10 ML IV SCH (20:45)
[2019-09-26] MEDS: GLUCERNA SHAKE 237 ML CAN PO SCH (20:46)
[2019-09-26] MEDS ORDERED: CEFTAZIDIME IV SCH (21:00)
[2019-09-26] MEDS ORDERED: NA CHLORIDE 0.9% IV SCH (21:00)
[2019-09-26] MEDS ORDERED: CEFTAZIDIME 1 GM VIAL IV ONE (23:27)
[2019-09-27 05:02] LABS: Absolute Lymphocytes (CBC) 1.3 K/uL (0.7-4.9); Basophils % 0.4 % (0-1.3); Hematocrit 26.9 % (36.0-45.0); Lymphocytes % 10.3 % (15.3-44.8); MPV 8.3 fL (7.6-11.3); RBC Red Blood Cell Count 3.04 M/uL (3.86-4.86)
[2019-09-27 05:22] LABS: ALT/SGPT 32 U/L (12-78); AST/SGOT 34 U/L (15-37); Albumin 2.7 g/dL (3.4-5.0); Alkaline Phosphatase 71 U/L (45-117); BUN Blood Urea Nitrogen 34 mg/dL (7-18); Bicarbonate 31 mmol/L (21-32); Bilirubin Total 0.3 mg/dL (0.2-1.0); Glucose Level 151 mg/dL (74-106); Magnesium 2.1 mg/dL (1.8-2.4); Phosphorus 5.2 mg/dL (2.5-4.9); Potassium 4.1 mmol/L (3.5-5.1); Protein, Total 5.7 g/dL (6.4-8.2); Sodium Level 138 mmol/L (136-145)
[2019-09-27 05:27] VITALS: BMI 26.8
[2019-09-27] MEDS: NA CHLORIDE 0.9% 1,000 ML IV SCH ×2 (07:24→16:57)
[2019-09-27] MEDS: INSULIN -REGULAR HUMAN 50 UNIT/0.5 ML ML IV SCH ×3 (07:30→16:30)
[2019-09-27] MEDS: GLUCERNA SHAKE 237 ML CAN PO SCH ×2 (08:19→20:41)
[2019-09-27 12:16] LABS: C.diff Antigen/Toxin Ag neg : Tox neg (NEG : NEG)
--- NOTE | 2019-09-27 15:04 | PN ---
Subjective: Patient is doing much better. She is alert and oriented. No new complaint. She has yanes d dialysis. Objective: Vital Signs: Her blood pressure 125/53, pulse 92, temperature 99.4. Heart: Regular rate and rhythm. Chest: Clear to auscultation. Abdomen: Soft, nontender. Bowel sounds are active. Extremities: No edema. No cyanosis. Peripheral pulses are felt. Neurological: Alert, oriented, nonfocal. Grossly intact. Laboratory Data: Urine microbiology showed E coli more than 100,000 colony-forming units, sensitive to cefepime. Abdominal ultrasound showed no gallbladder stones and no acute cholecystitis. BUN 34, creatinine 5.15, GFR 8. Blood sugar fingersticks noted. Lactic acid up down to 4.8. Prolactin was 19.83. White cell count dropped to 13.1, hemoglobin 9.1, hematocrit 26.9, platelets 216. Assessment And Plan: 1.Escherichia coli sepsis with acute renal failure and the patient with chronic renal insufficiency. The acute renal failure was secondary to the Escherichia coli sepsis. We will go ahead and continu e current antibiotic, cefepime IV. We will monitor her electrolytes and her CBC. Nephrology is help ing us with her acute renal failure. We will follow the recommendation. 2.Diabetes mellitus. Patient was on a sliding scale. Patient after that will be scheduled to insul in treatment for that. 3.We can transfer the patient to regular floor. Look orders for details. MFS/MODL Voice ID: [id number] Report ID: [id number]
[2019-09-27] MEDS: INSULIN -REGULAR HUMAN 50 UNIT/0.5 ML ML SQ SCH ×2 (17:02→20:39)
[2019-09-27] MEDS: ATORVASTATIN 10 MG TAB PO SCH (20:38)
[2019-09-27] MEDS: CEFEPIME/SWI 1gm 10 ML IV SCH (20:38)
[2019-09-27] MEDS: AZOPT 1% OPTH SCH (20:39)
[2019-09-27] MEDS: BRIMONIDINE TARTRATE 0.15% 5 ML OPTH SCH (20:39)
[2019-09-27] MEDS: TIMOLOL MALEATE 0.5% OPTH 5 ML BTL OPTH SCH (20:39)
[2019-09-27] MEDS: LATANOPROST 0.005% 2.5ML OPTH OPTH SCH (20:39)
--- NOTE | 2019-09-27 22:25 | P.PN ---
Date of Service: 09/27/19 Vital Signs Temp Pulse Resp BP Pulse Ox 99.6 F 87 18 122/55 L 96 09/27/19 15:00 09/27/19 15:00 09/27/19 15:00 09/27/19 15:00 09/27/19 15:00 Medications Acetaminophen (Tylenol -Tablet) 650 mg PO BIDP PRN PRN Reason: TEMP > 100' F Stop: 10/26/19 17:58 Last Admin: 09/26/19 18:16 Dose: 650 mg Atorvastatin Calcium (Lipitor) 10 mg PO BEDTIME [facility] Stop: 10/26/19 21:01 Last Admin: 09/27/19 20:38 Dose: 10 mg Brimonidine Tartrate (Alphagan P 0.15% [facility]) 1 drops OPTH BID [facility] Stop: 10/27/19 21:01 Last Admin: 09/27/19 20:39 Dose: 1 drops Dextrose (Dextrose 50% Syringe/Vial) 12.5 gm IV PRN PRN; Protocol PRN Reason: HYPOGLYCEMIA Stop: 10/26/19 16:30 Enteral Nutritional Formula (Glucerna Shake) 237 ml PO BID [facility] Stop: 10/26/19 21:01 Last Admin: 09/27/19 20:41 Dose: 237 ml Glucagon (Glucagen) 1 mg IM 1X PRN; Protocol PRN Reason: HYPOGLYCEMIA Stop: 10/26/19 16:30 Home Med (Home Med) 0 ea OPTH BID [facility] Stop: 10/27/19 21:01 Last Admin: 09/27/19 20:39 Dose: 1 ea Norepinephrine Bitartrate 4 mg (/ Dextrose) 254 mls @ 0 mls/hr IV PRN PRN; Protocol PRN Reason: Hemodynamic Parameters Stop: 10/25/19 21:34 Last Admin: 09/26/19 03:22 Dose: 254 mls Sodium Chloride (Sodium Chloride) 250 mls @ 0 mls/hr IV .Q0M [facility] Stop: 10/26/19 02:01 Last Admin: 09/26/19 01:30 Dose: 250 mls Cefepime HCl (Maxipime 1 Gm/10 Ml Ivp) 10 mls @ 120 mls/hr IV 2100 [facility] Stop: 10/26/19 21:01 Last Admin: 09/27/19 20:38 Dose: Not Given Sodium Chloride (Ns 1000 Ml Ivbag) 1,000 mls @ 100 mls/hr IV .Q10H [facility] Stop: 10/27/19 07:01 Last Admin: 09/27/19 16:57 Dose: 1,000 mls Insulin Human Regular (Novolin -R) 0 unit SQ ACHS [facility]; Protocol Stop: 10/26/19 16:31 Last Admin: 09/27/19 20:39 Dose: Not Given Latanoprost (Xalatan 0.005% Ophth Kaylin) 1 drops OPTH BEDTIME [facility] Stop: 10/27/19 21:01 Last Admin: 09/27/19 20:39 Dose: 1 gtts Sodium Chloride (Normal Saline Flush) 10 ml IV BID [facility] Stop: 10/26/19 09:01 Last Admin: 09/27/19 20:38 Dose: 10 ml Sterile Water (Sterile Water For Inj (10 Ml Vial)) 10 ml IV UD PRN PRN Reason: DILUTION OF MED Stop: 10/26/19 01:02 Last Admin: 09/26/19 01:18 Dose: 10 ml Timolol Maleate (Timoptic 0.5% Ophth) 1 drops OPTH BID [facility] Stop: 10/27/19 21:01 Last Admin: 09/27/19 20:39 Dose: 1 drops Microbiology Results 09/25/19 19:20 Blood - Blood Aerobic Blood Culture - Preliminary No growth in 24 hours. 09/25/19 19:20 Blood - Blood Anaerobic Blood Culture - Preliminary No growth in 24 hours. 09/25/19 18:40 Blood - Blood Aerobic Blood Culture - Preliminary No growth in 24 hours. 09/25/19 18:40 Blood - Blood Anaerobic Blood Culture - Preliminary No growth in 24 hours. Assessment/ Plan: Nephrology CPS stable without CP or SOB. No acute events overnight. Feeling better. Good urine output. Vitals, medications, blood work and imaging reviewed in the chart. NAD. MMM. Neck supple. CTA. RRR. Soft Abd. No C/C/E. No rash. AA. Normal Speech. Obese. Elias with medium urine. A/ AKHIL in the setting of sepsis sp HD X1. Hypocalcemia. HyperPO4. CKD III. DM II with CKD. Moderate malnutrition. Anemia in chronic illness. Lactic acidosis. Sepsis. Acute cystitis. P/ Continue current POC and Medications. Continue abx. Continue IVF. No HD at this time. AM labs. Daily weight. No NSAIDs.
[2019-09-28] MEDS: NA CHLORIDE 0.9% 1,000 ML IV SCH ×2 (02:14→12:30)
[2019-09-28 05:57] LABS: Absolute Lymphocytes (CBC) 1.5 K/uL (0.7-4.9); Basophils % 0.2 % (0-1.3); Lymphocytes % 13.4 % (15.3-44.8); MPV 8.5 fL (7.6-11.3); RBC Red Blood Cell Count 3.42 M/uL (3.86-4.86)
[2019-09-28 06:01] LABS: Potassium 3.6 mmol/L (3.5-5.1)
[2019-09-28] MEDS: INSULIN -REGULAR HUMAN 50 UNIT/0.5 ML ML SQ SCH ×4 (07:30→20:48)
[2019-09-28] MEDS: GLUCERNA SHAKE 237 ML CAN PO SCH ×2 (09:00→20:46)
[2019-09-28] MEDS: AZOPT 1% OPTH SCH ×2 (09:00→20:47)
[2019-09-28] MEDS: BRIMONIDINE TARTRATE 0.15% 5 ML OPTH SCH (09:24)
[2019-09-28] MEDS: TIMOLOL MALEATE 0.5% OPTH 5 ML BTL OPTH SCH ×2 (09:26→20:48)
--- NOTE | 2019-09-28 13:37 | P.PN ---
Date of Service: 09/28/19 Vital Signs Temp Pulse Resp BP Pulse Ox 98.2 F 84 18 170/86 H 98 09/28/19 12:00 09/28/19 12:00 09/28/19 12:00 09/28/19 12:00 09/28/19 12:00 Medications Acetaminophen (Tylenol -Tablet) 650 mg PO BIDP PRN PRN Reason: TEMP > 100' F Stop: 10/26/19 17:58 Last Admin: 09/26/19 18:16 Dose: 650 mg Atorvastatin Calcium (Lipitor) 10 mg PO BEDTIME [facility] Stop: 10/26/19 21:01 Last Admin: 09/27/19 20:38 Dose: 10 mg Dextrose (Dextrose 50% Syringe/Vial) 12.5 gm IV PRN PRN; Protocol PRN Reason: HYPOGLYCEMIA Stop: 10/26/19 16:30 Enteral Nutritional Formula (Glucerna Shake) 237 ml PO BID [facility] Stop: 10/26/19 21:01 Last Admin: 09/28/19 09:00 Dose: 237 ml Glucagon (Glucagen) 1 mg IM 1X PRN; Protocol PRN Reason: HYPOGLYCEMIA Stop: 10/26/19 16:30 Home Med (Home Med) 0 ea OPTH BID [facility] Stop: 10/27/19 21:01 Last Admin: 09/28/19 09:00 Dose: 1 ea Norepinephrine Bitartrate 4 mg (/ Dextrose) 254 mls @ 0 mls/hr IV PRN PRN; Protocol PRN Reason: Hemodynamic Parameters Stop: 10/25/19 21:34 Last Admin: 09/26/19 03:22 Dose: 254 mls Sodium Chloride (Sodium Chloride) 250 mls @ 0 mls/hr IV .Q0M [facility] Stop: 10/26/19 02:01 Last Admin: 09/26/19 01:30 Dose: 250 mls Cefepime HCl (Maxipime 1 Gm/10 Ml Ivp) 10 mls @ 120 mls/hr IV 2100 [facility] Stop: 10/26/19 21:01 Last Admin: 09/27/19 20:38 Dose: Not Given Sodium Chloride (Ns 1000 Ml Ivbag) 1,000 mls @ 100 mls/hr IV .Q10H [facility] Stop: 10/27/19 07:01 Last Admin: 09/28/19 12:30 Dose: 1,000 mls Ceftriaxone Sodium/Sodium Chloride (Rocephin 1gm/50 Ml Ivpb) 1 gm in 50 mls @ 100 mls/hr IV DAILY [facility]; Protocol Stop: 10/28/19 13:46 Insulin Human Regular (Novolin -R) 0 unit SQ ACHS [facility]; Protocol Stop: 10/26/19 16:31 Last Admin: 09/28/19 12:35 Dose: 3 unit Latanoprost (Xalatan 0.005% Ophth Kaylin) 1 drops OPTH BEDTIME [facility] Stop: 10/27/19 21:01 Last Admin: 09/27/19 20:39 Dose: 1 gtts Sodium Chloride (Normal Saline Flush) 10 ml IV BID [facility] Stop: 10/26/19 09:01 Last Admin: 09/28/19 09:26 Dose: 10 ml Sterile Water (Sterile Water For Inj (10 Ml Vial)) 10 ml IV UD PRN PRN Reason: DILUTION OF MED Stop: 10/26/19 01:02 Last Admin: 09/26/19 01:18 Dose: 10 ml Timolol Maleate (Timoptic 0.5% Oph) 1 drops OPTH BID [facility] Stop: 10/27/19 21:01 Last Admin: 09/28/19 09:26 Dose: 1 drops Microbiology Results 09/25/19 19:20 Blood - Blood Aerobic Blood Culture - Preliminary No growth in 24 hours. 09/25/19 19:20 Blood - Blood Anaerobic Blood Culture - Preliminary No growth in 24 hours. 09/25/19 18:40 Blood - Blood Aerobic Blood Culture - Preliminary No growth in 24 hours. 09/25/19 18:40 Blood - Blood Anaerobic Blood Culture - Preliminary No growth in 24 hours. Assessment/ Plan: Nephrology CPS stable without CP or SOB. No acute events overnight. Feeling better. Good urine output. Fair appetite. Vitals, medications, blood work and imaging reviewed in the chart. NAD. MMM. Neck supple. CTA. RRR. Soft Abd. No C/C/E. No rash. AA. Normal Speech. Obese. Elias with medium urine. A/ AKHIL in the setting of sepsis. Hypocalcemia. HyperPO4. CKD III. DM II with CKD. Moderate malnutrition. Anemia in chronic illness. Lactic acidosis. Sepsis. Acute E.coli cystitis. P/ Continue current POC and Medications. DC Cefepime. Start Rocephin. Change IVF 1/2NS. Encourage nutrition. AM labs. Daily weight. No NSAIDs. Case reviewed with Dr. Dickens
--- NOTE | 2019-09-28 15:32 | RAD REPORT ---
EXAM DESCRIPTION: US - UPPER EXTREMITY VENOUS UNILATE - 09/28/2019 3:22 pm CLINICAL HISTORY: Right upper extremity swelling COMPARISON: None. FINDINGS: The right internal jugular, subclavian, brachial, axillary, cephalic, basilic, radial and ulnar veins demonstrate phasic signal. The veins are generally compressible. Doppler demonstrates good flow IMPRESSION: No evidence of thrombus involving the right upper extremity
[2019-09-28] MEDS: CEFTRIAXONE/SWI 1gm 1 GM/10 ML SYR IVP SCH (16:32)
[2019-09-28] MEDS: NACHLORIDE 0.45% 1,000 ML IV SCH (16:32)
--- NOTE | 2019-09-28 18:46 | PN ---
Subjective: The patient is doing well today, alert and oriented. No new complaints. Objective: Vital Signs: Blood pressure 170/86, pulse 84, temperature 98.2. Heart: Regular rate and rhythm. Chest: Clear to auscultation. Abdomen: Soft, benign, nontender. Extremities: No edema. No cyanosis. Peripheral pulses are felt. Laboratory Data: Chemistry showed improvement in her renal function with GFR up to 10, BUN 28, creat inine 4.18, blood sugar fingersticks also noted. Calcium is 7. No white cell count dropped to 11.1, hemoglobin 10.3, hematocrit 31, platelets 207. Assessment And Plan: 1.Sepsis with Escherichia coli from urinary tract infection. The patient is switched to ceftriaxone IV antibiotic q.24 hours guarded by sensitivity. She is responding. 2.Acute renal failure, gradually improving and Nephrology is holding on another dialysis thinking th at the patient's renal function will continue to recover. 3.Hypertension. Patient was on amlodipine 10 mg daily. We are going to put her on 5 mg p.o. daily for now and monitor her blood pressure. 4.Type 2 diabetes. The patient was on regular sliding scale. Look orders for details. MFS/MODL Voice ID: [id number] Report ID: [id number]
[2019-09-28] MEDS: ATORVASTATIN 10 MG TAB PO SCH (20:46)
[2019-09-28] MEDS: LATANOPROST 0.005% 2.5ML OPTH OPTH SCH (20:48)
[2019-09-29 01:39] LABS: Urine Appearance CLEAR; Urine Bilirubin NEGATIVE (NEG); Urine Blood 1+ (NEG); Urine Color YELLOW; Urine Glucose 1+ (NEG); Urine Protein 1+ (NEG); Urine Urobilinogen 0.2 mg/dL (0.2-1.0); Urine pH 8.5 (5.0-7.0)
[2019-09-29] MEDS: NACHLORIDE 0.45% 1,000 ML IV SCH ×4 (02:24→14:00)
[2019-09-29 03:10] LABS: Urine Amorphous Sediment 1+ /HPF (NONE SEEN)
[2019-09-29 03:12] LABS: Urine Bacteria 20-50 /HPF (<20); Urine Culture Reflex Order REFLEXED
[2019-09-29 05:41] LABS: Absolute Lymphocytes (CBC) 1.2 K/uL (0.7-4.9); Basophils % 0.4 % (0-1.3); Hematocrit 30.5 % (36.0-45.0); Lymphocytes % 9.4 % (15.3-44.8); MPV 8.7 fL (7.6-11.3); RBC Red Blood Cell Count 3.44 M/uL (3.86-4.86)
[2019-09-29 05:59] LABS: Phosphorus 2.5 mg/dL (2.5-4.9); Potassium 3.2 mmol/L (3.5-5.1)
[2019-09-29] MEDS: INSULIN -REGULAR HUMAN 50 UNIT/0.5 ML ML SQ SCH ×4 (07:30→20:30)
[2019-09-29] MEDS: AZOPT 1% OPTH SCH ×2 (09:00→20:29)
[2019-09-29] MEDS: TIMOLOL MALEATE 0.5% OPTH 5 ML BTL OPTH SCH ×2 (09:00→20:28)
[2019-09-29] MEDS: GLUCERNA SHAKE 237 ML CAN PO SCH ×2 (09:00→20:30)
[2019-09-29] MEDS: AMLODIPINE 5 MG TAB PO SCH (09:10)
[2019-09-29] MEDS: VITAMIN D 5,000 UNIT CAP PO SCH (09:10)
[2019-09-29] MEDS: CALCITROL 0.25 MCG CAP PO SCH (09:10)
[2019-09-29] MEDS: CEFTRIAXONE/SWI 1gm 1 GM/10 ML SYR IVP SCH (09:11)
--- NOTE | 2019-09-29 16:09 | PN ---
Subjective: Patient is doing well. No new complaint. Objective: Vital Signs: Blood pressure 139/62, pulse 90, temperature 97.9. Heart: Regular rate and rhythm. Chest: Clear to auscultation. Abdomen: Soft, benign. Bowel sounds are active. Extremities: No edema. No cyanosis. Peripheral pulses are felt. Neurological: Alert and oriented, grossly intact. Room air pulse oximetry 94. Laboratory Data: CBC; white cell count 13.2, hemoglobin 10.1, hematocrit 30.5, platelets 177, blood sugar fingersticks noted at less than 200 and more than 100. Sodium 133, potassium 3.2, BUN 21, crea tinine 2.46, glomerular filtration rate up to 19, calcium 7.1. Assessment And Plan: 1.Sepsis likely from urine tract infection with E coli. Patient responding to current antibiotic. We will continue that. 2.Acute renal failure and dehydration are correcting. Appreciate Nephrology input. Patient was als o changed to half-normal saline on her IV fluids. Continues to improve and her filtration rate is im proving. 3.Anemia of chronic kidney disease is stable. 4.Type 2 diabetes mellitus. We will continue the patient on regular insulin. 5.Electrolyte imbalance, hypocalcemia is being managed by Nephrology. 6.Continue current care and treatment and monitor electrolytes and blood count. Expect discharge in about 2 days. Look orders for details. MFS/MODL Voice ID: [id number] Report ID: [id number]
[2019-09-29] MEDS: LATANOPROST 0.005% 2.5ML OPTH OPTH SCH (20:29)
[2019-09-29] MEDS: OXYBUTYNIN ER 5 MG TAB PO SCH (20:30)
[2019-09-29] MEDS: ATORVASTATIN 10 MG TAB PO SCH (20:30)
[2019-09-29] MEDS ORDERED: Magnesium Sulfate 2gm IVPB 2 G/50 ML BAG IV ONE (21:22)
[2019-09-29] MEDS: KCL 20 MEQ/100 mL IVPB 20 MEQ/100 ML BAG IV SCH (21:53)
[2019-09-30] MEDS: KCL 20 MEQ/100 mL IVPB 20 MEQ/100 ML BAG IV SCH (00:03)
[2019-09-30 04:47] LABS: Absolute Lymphocytes (CBC) 1.4 K/uL (0.7-4.9); Basophils % 0.3 % (0-1.3); Hematocrit 29.7 % (36.0-45.0); Lymphocytes % 13.6 % (15.3-44.8); MPV 8.5 fL (7.6-11.3); RBC Red Blood Cell Count 3.36 M/uL (3.86-4.86)
[2019-09-30 04:55] LABS: Potassium 3.6 mmol/L (3.5-5.1)
[2019-09-30] MEDS: NACHLORIDE 0.45% 1,000 ML IV SCH ×2 (05:55→21:28)
[2019-09-30] MEDS: INSULIN -REGULAR HUMAN 50 UNIT/0.5 ML ML SQ SCH ×4 (07:30→21:00)
[2019-09-30] MEDS: CALCITROL 0.25 MCG CAP PO SCH (07:38)
[2019-09-30] MEDS: AMLODIPINE 5 MG TAB PO SCH (07:38)
[2019-09-30] MEDS: VITAMIN D 5,000 UNIT CAP PO SCH (07:38)
[2019-09-30] MEDS: CEFTRIAXONE/SWI 1gm 1 GM/10 ML SYR IVP SCH (07:41)
[2019-09-30] MEDS: GLUCERNA SHAKE 237 ML CAN PO SCH ×2 (07:42→21:11)
[2019-09-30] MEDS: TIMOLOL MALEATE 0.5% OPTH 5 ML BTL OPTH SCH ×2 (07:43→21:06)
[2019-09-30] MEDS: AZOPT 1% OPTH SCH ×2 (07:43→21:00)
--- NOTE | 2019-09-30 09:37 | PN ---
Date of Progress Note: 09/29/2019 Subjective: The patient is seen at the bedside. The patient had Elias catheter, removed yesterday. She has been having polyuria with severe difficulty and maintaining her urine output. I was contact ed in that regard and given the history of polyuria and discomfort for the patient. I had requested for Elias catheter to be replaced and Ditropan to be given for patient's comfort in that regard. Yes terday, the patient had 3200 mL of urine output. She also had electrolyte imbalance. The patient is currently seen at the bedside with many family members surrounding her. The patient is conversing w natalya and according to the family, able to converse and according to her family is at her baseline, cesar does show ability to converse at the baseline of a patient who has had a CVA in the past, which is apparent. Review of Systems: No fevers, chills, chest pain, shortness of breath, nausea, vomiting, or diarrhea. Objective: Vital Signs: Blood pressure is 134/65, pulse 91, afebrile. Input and output over the 72 hours has been reviewed. Urine output has been 4.5 L on 09/27, 6.7 L on 09/28, 3.2 L thus far on 09/29. GENERAL: No acute distress. Heart: Regular rate and rhythm. No murmurs, rubs, or gallops. Lungs: Clear to auscultation bilaterally. Abdomen: Soft, nontender, nondistended. Extremities: With trace to 1+ edema. Laboratory Data: Sodium 133, potassium 3.2, chloride 100, CO2 of 23, BUN 21, creatinine 2.46, glucos e 109, calcium 7.1, phosphorus 2.5. BUN and creatinine trend has been improving from 28/4.18 on the , down to 21/2.46 today. Admission creatinine was 7.69. UA yesterday morning had shown 5 to 10 rbc's, 20 to 50 bacteria, and 1+ protein in the morning. Current Medications: Half NS at 100 mL/hour, amlodipine 5, atorvastatin 10, calcitriol 0.5, vitamin D 5000 daily. Impression: 1.Polyuria, likely in the setting of diuretic phase of acute tubular necrosis. 2.Severe acute renal failure and metabolic acidosis, possibly from acute illness with metformin use, which required emergent hemodialysis. 3.Escherichia coli urinary tract infection. 4.Sepsis. Plan: The patient's polyuria is multifactorial. This is from diuretic phase of her acute tubular ne crosis, which is resolving. She has also been on IV fluids at 100 mL/hour. She also has electrolyte balance, explain by the patient's polyuria. At this point, we will decrease patient's half NS to 50 mL/hour. Monitor for improvement in urine flow. Would encourage p.o. intake. Electrolyte replenis hment orders have been placed with both potassium chloride and magnesium sulfate ordered. The patien t will need to continue Elias catheter to monitor urine output. The patient's blood pressure trend h as been robust and has been stable, and I am not observing hypernatremia at this time. Both of these point away from significant volume depletion/dehydration. I believe half NS at 50 mL an hour will b e sufficient, if we see evidence of worsening volume status and/or hypernatremia, we will need to libertad djust fluid balance. It is important to encourage p.o. fluids and will continue to follow with Elias catheter another 24 to 48 hours. Avoid all NSAIDs, avoid all contrast, and we will continue to foll ow. SE/MODL Voice ID: [id number] Report ID: [id number]
[2019-09-30] MEDS: OXYBUTYNIN ER 5 MG TAB PO SCH ×2 (09:38→21:05)
--- NOTE | 2019-09-30 16:06 | PN ---
Subjective: Patient is doing well. No new complaints. Objective: Vital Signs: Blood pressure 145/65, pulse 90, temperature 97.3. Heart: Regular rate and rhythm. Chest: Clear to auscultation. Abdomen: Soft, benign. Neurologic: Alert and oriented, grossly intact. Laboratory Data: White cell count dropped down to 10.6, hemoglobin 9.9, hematocrit 29.7, platelets 2 21. No electrolytes noted. BUN is 17, creatinine dropped down to 1.69. Glomerular filtration rate is up to 30. Assessment And Plan: 1.Sepsis is controlled, resolving with current antibiotic. 2.Acute renal failure on top of chronic and dehydration, resolving and improving. 3.Anemia of chronic illness, stable. 4.Type 2 diabetes mellitus. Blood sugar fingersticks noted. Patient is on regular insulin sliding scale and on discharge, we will send her on insulin treatment and we will stop her metformin. 5.Hypertension. I think also we will keep the patient on amlodipine for now and also we will follow her up as an outpatient. I will expect the patient to be discharged in a.m. We will check her malena l function. Continue current treatment and if it is okay with Nephrology, we will be discharging her tomorrow. Look orders for details. MFS/MODL Voice ID: [id number] Report ID: [id number]
[2019-09-30] MEDS: ATORVASTATIN 10 MG TAB PO SCH (21:05)
[2019-09-30] MEDS: LATANOPROST 0.005% 2.5ML OPTH OPTH SCH (21:06)
--- NOTE | 2019-10-01 00:13 | PN ---
Date of Progress Note: 09/30/2019 Subjective: Patient was seen at the bedside. No overnight events reported. The patient feels well. Denies any fevers, chills, chest pain, shortness of breath, nausea, vomiting, or diarrhea. Objective: Vital Signs: Blood pressure is 148/67, pulse 90, afebrile. General: No acute distress. Heart: Regular rate and rhythm. No murmurs, rubs, or gallops. Lungs: Clear to auscultation bilaterally. Abdomen: Soft, nontender, nondistended. Extremities: No significant edema. Elias catheter with clear yellow urine. Input and output; 1976 in, 4400 out, negative 2.4 L balance. Laboratory Data: Sodium 136, potassium 3.6, chloride 102, CO2 26, BUN 17, creatinine 1.69, glucose 1 07, calcium 8.1. Current Medications: Reviewed. Impression: 1.Polyuria secondary to diuretic phase of resolving acute tubular necrosis. 2.Electrolyte abnormalities. 3.Escherichia coli urinary tract infection. 4.Sepsis. Plan: Patient's polyuria has shown some marginal improvement since discontinuing IV fluids. The pat ient is not showing any elements of volume depletion and thus we will continue the patient on half NS at 50 mL an hour. Continue monitoring serial chemistries. The patient may need increase in fluid r ate if negative balance is causing electrolytes or volume depletion consequences. Avoid all NSAIDs, avoid contrast. We will continue t o follow. SE/MODL Voice ID: [id number] Report ID: [id number]
[2019-10-01 06:06] LABS: Potassium 3.5 mmol/L (3.5-5.1)
[2019-10-01] MEDS: INSULIN -REGULAR HUMAN 50 UNIT/0.5 ML ML SQ SCH ×4 (07:30→20:37)
[2019-10-01 07:39] VITALS: O2SAT 95
[2019-10-01] MEDS: AMLODIPINE 5 MG TAB PO SCH (07:41)
[2019-10-01] MEDS: VITAMIN D 5,000 UNIT CAP PO SCH (07:41)
[2019-10-01] MEDS: CALCITROL 0.25 MCG CAP PO SCH (07:42)
[2019-10-01] MEDS: CEFTRIAXONE/SWI 1gm 1 GM/10 ML SYR IVP SCH (07:42)
[2019-10-01] MEDS: GLUCERNA SHAKE 237 ML CAN PO SCH (07:43)
[2019-10-01] MEDS: AZOPT 1% OPTH SCH (07:44)
[2019-10-01] MEDS: TIMOLOL MALEATE 0.5% OPTH 5 ML BTL OPTH SCH (07:44)
[2019-10-01] MEDS: OXYBUTYNIN ER 5 MG TAB PO SCH (09:23)
--- NOTE | 2019-10-01 11:10 | P.PN ---
Date of Service: 10/01/19 Vital Signs Temp Pulse Resp BP Pulse Ox 98.1 F 93 H 15 129/61 95 10/01/19 08:00 10/01/19 08:00 10/01/19 08:00 10/01/19 08:00 10/01/19 08:00 Medications Acetaminophen (Tylenol -Tablet) 650 mg PO BIDP PRN PRN Reason: TEMP > 100' F Stop: 10/26/19 17:58 Last Admin: 09/26/19 18:16 Dose: 650 mg Amlodipine Besylate (Norvasc) 5 mg PO DAILY WENDI Stop: 10/29/19 09:01 Last Admin: 10/01/19 07:41 Dose: 5 mg Atorvastatin Calcium (Lipitor) 10 mg PO BEDTIME WENDI Stop: 10/26/19 21:01 Last Admin: 09/30/19 21:05 Dose: 10 mg Calcitriol (Rocaltrol) 0.5 mcg PO DAILY WENDI Stop: 10/29/19 09:01 Last Admin: 10/01/19 07:42 Dose: 0.5 mcg Cholecalciferol (Vitamin D 5,000 Iu Cap) 5,000 unit PO DAILY WENDI Stop: 10/29/19 09:01 Last Admin: 10/01/19 07:41 Dose: 5,000 unit Dextrose (Dextrose 50% Syringe/Vial) 12.5 gm IV PRN PRN; Protocol PRN Reason: HYPOGLYCEMIA Stop: 10/26/19 16:30 Enteral Nutritional Formula (Glucerna Shake) 237 ml PO BID WENDI Stop: 10/26/19 21:01 Last Admin: 10/01/19 07:43 Dose: 237 ml Glucagon (Glucagen) 1 mg IM 1X PRN; Protocol PRN Reason: HYPOGLYCEMIA Stop: 10/26/19 16:30 Home Med (Home Med) 0 ea OPTH BID [facility] Stop: 10/27/19 21:01 Last Admin: 10/01/19 07:44 Dose: 1 ea Norepinephrine Bitartrate 4 mg (/ Dextrose) 254 mls @ 0 mls/hr IV PRN PRN; Protocol PRN Reason: Hemodynamic Parameters Stop: 10/25/19 21:34 Last Admin: 09/26/19 03:22 Dose: 254 mls Sodium Chloride (Sodium Chloride) 250 mls @ 0 mls/hr IV .Q0M WENDI Stop: 10/26/19 02:01 Last Admin: 09/26/19 01:30 Dose: 250 mls Ceftriaxone Sodium/Sodium Chloride (Rocephin 1 Gm/10 Ml Swi Ivp) 1 gm in 10 mls @ 600 mls/hr IVP DAILY [facility]; Protocol Stop: 10/28/19 14:01 Last Admin: 10/01/19 07:42 Dose: 10 mls Sodium Chloride (Sodium Chloride 0.45%) 1,000 mls @ 50 mls/hr IV .Q20H [facility] Stop: 10/29/19 14:01 Last Admin: 09/30/19 21:28 Dose: 1,000 mls Insulin Human Regular (Novolin -R) 0 unit SQ ACHS [facility]; Protocol Stop: 10/26/19 16:31 Last Admin: 10/01/19 07:30 Dose: Not Given Latanoprost (Xalatan 0.005% Ophth Kaylin) 1 drops OPTH BEDTIME [facility] Stop: 10/27/19 21:01 Last Admin: 09/30/19 21:06 Dose: 1 gtts Oxybutynin Chloride (Ditropan Xl) 5 mg PO BID [facility] Stop: 10/29/19 21:01 Last Admin: 10/01/19 09:23 Dose: 5 mg Sodium Chloride (Normal Saline Flush) 10 ml IV BID [facility] Stop: 10/26/19 09:01 Last Admin: 10/01/19 07:43 Dose: 10 ml Sterile Water (Sterile Water For Inj (10 Ml Vial)) 10 ml IV UD PRN PRN Reason: DILUTION OF MED Stop: 10/26/19 01:02 Last Admin: 09/26/19 01:18 Dose: 10 ml Timolol Maleate (Timoptic 0.5% Ophth) 1 drops OPTH BID [facility] Stop: 10/27/19 21:01 Last Admin: 10/01/19 07:44 Dose: 1 drops Microbiology Results 09/25/19 19:20 Blood - Blood Aerobic Blood Culture - Final No growth in 5 days. 09/25/19 19:20 Blood - Blood Anaerobic Blood Culture - Final No growth in 5 days. 09/25/19 18:40 Blood - Blood Aerobic Blood Culture - Final No growth in 5 days. 09/25/19 18:40 Blood - Blood Anaerobic Blood Culture - Final No growth in 5 days. Assessment/ Plan: Nephrology CPS stable without CP or SOB. No acute events overnight. Feeling better. Good urine output. Improving appetite. Vitals, medications, blood work and imaging reviewed in the chart. NAD. MMM. Neck supple. CTA. RRR. Soft Abd. No C/C/E. No rash. AAO. Normal Speech. Elias with light urine. A/ AKHIL in the setting of sepsis. Hypokalemia Hypocalcemia. HyperPO4. CKD III. DM II with CKD. Moderate malnutrition. Anemia in chronic illness. Lactic acidosis. Sepsis. Acute E.coli cystitis. P/ Continue current POC and Medications. Give potassium today. Gentle IVF with NS. Encourage nutrition. AM labs. Daily weight. No NSAIDs. Case reviewed with the family at the bedside.
[2019-10-01] MEDS ORDERED: POTASSIUM CL SA 10 MEQ TAB PO ONE (11:19)
[2019-10-01] MEDS: ATORVASTATIN 10 MG TAB PO SCH (20:36)
[2019-10-01 20:59] VITALS: BP 131/58; TEMP 97.6
--- NOTE | 2019-10-02 01:36 | DS ---
Date of Discharge: 10/01/2019 History: Patient is doing good. Sitting by the bedside. Has no new complaints. Patient was admitt ed to the hospital because of multiorgan failure including her kidney's acute on top of chronic and a lso hypotension because of sepsis from E coli from urine tract infection. Past Medical History: As per admit note. Social History: As per admit note. Family History: As per admit note. Medications: As per admit note. Allergies: PER ADMIT NOTE. Physical Examination: Diagnostic data as per admit note. Hospital Course: Patient was admitted to the hospital. She was put on IV antibiotics and she was al so dehydrated. She was put on IV fluids. Nephrology was consulted. Patient had to be dialyzed 1 ti me. Her kidney functions with antibiotics and volume repletion started to improve. Today, her glome rular filtration rate was 43, also anemia of chronic illness remained stable, and we monitored that. On her diabetes, the patient was on metformin and because she may also has had lactic acidosis, we a re going to go ahead and cut permanently her metformin. We will put her on insulin. We will start h er on Basaglar 10 units subcutaneous daily and patient to check the blood sugar fingersticks twice a day and call them for me on or bring them with her on followup. Meanwhile, as the patient is doing w ell, her E coli was sensitive to Augmentin. We will also discharge her on Augmentin 500 b.i.d. for t he next 4 days. To continue the rest of her home medicines and also was instructed the patient and h er family not to take anymore metformin as mentioned earlier. Look discharge orders for details. MFS/MODL Voice ID: [id number] Report ID: [id number]
== END 2019-10-01 21:00 | disposition home or self-care (01) | DRG 871 ==
LOC: ER 18:00 → ERHOLD 21:09 → 3RD-ICU 23:06 → 4TH 09-27 15:50
PROVIDERS: ADMIT Internal Medicine; ATTEND Hospitalist
PROC: 5A1D70Z Performance of Urinary Filtration, Intermittent, Less than 6 Hours Per Day (ICD-10-PCS; principal; 2019-09-25)
DX: A41.9 Sepsis, unspecified organism (principal); R65.21 Severe sepsis with septic shock; N17.0 Acute kidney failure with tubular necrosis; N30.00 Acute cystitis without hematuria; E46 Unspecified protein-calorie malnutrition; E87.2 Acidosis; B96.20 Unspecified Escherichia coli [E. coli] as the cause of diseases classified elsewhere; I12.9 Hypertensive chronic kidney disease with stage 1 through stage 4 chronic kidney disease, or unspecified chronic kidney disease; E11.22 Type 2 diabetes mellitus with diabetic chronic kidney disease; N18.3 Chronic kidney disease, stage 3 (moderate); E87.6 Hypokalemia; E83.51 Hypocalcemia; Z68.23 Body mass index [BMI] 23.0-23.9, adult; D64.9 Anemia, unspecified; I95.9 Hypotension, unspecified
CPT/HCPCS: 36415; 36430; 51702; 70450; 71045; 72125; 74177; 76700; 80048; 80053; 81001; 81015; 82010; 82274; 82570; 82805; 82947; 83605; 83735; 84100; 84145; 84300; 84484; 84550; 85025; 85027; 86850; 86900; 86901; 87040; 87045; 87046; 87077; 87086; 87088; 87186; 87324; 87449; 90935; 92610; 93005; 93306; 93971; 97112; 97116; 97161; 97530; 99285; J0692; J0696; J0713; J1610; J1644; J2150; J2405; J3475; J7030; J7040; J7060; P9016; Q9967